=== PATIENT | male | born 1940 | race Caucasian/White ===

== ENCOUNTER → 2019-03-26 09:47 | Outpatient (CLI) | payer MEDICARE, SELFPAY ==
[2019-03-26 11:05] LABS: Alanine Aminotransferase 33 IU/L (21-72); Albumin 4.6 g/dL (3.5-5.0); Albumin Globulin Ratio 1.4 (1.0-2.8); Alkaline Phosphatase 81 U/L (38-126); Aspartate Aminotransferase 29 IU/L (17-59); Bilirubin Total 1.2 mg/dL (0.2-1.3); Blood Urea Nitrogen 14 mg/dL (9-20); Carbon Dioxide 27 mmol/L (22-32); Chloride 99 mmol/L (98-107); Cholesterol 203 mg/dL (140-199); Estimated Glomerular Filt Rate > 60.0 mL/min (>60); Globulin 3.2 g/dL (1.7-4.1); Glucose 122 mg/dL (80-110); HDL Cholesterol 49 mg/dL (40-60); HEMOLYSIS < 15 (0-50); LDL Cholesterol Calculated 118 mg/dL (<100); Potassium 4.3 mmol/L (3.4-5.1); Sodium 140 mmol/L (137-145); Total Protein 7.8 g/dL (6.3-8.2); Triglycerides 180 mg/dL (35-150)
[2019-03-26 11:10] LABS: Hemoglobin A1C% w Est Avg Glu 5.4 % (4.0-6.0)
[2019-03-26 11:49] LABS: Creatinine Urine Random 43.4 mg/dL
[2019-03-26 12:36] LABS: Microalbumi Creatinin Ratio Ur 41.4 ug/mg CR (<30); Microalbumin Urine Random 1.8 mg/dL (0-1.6)
== END ==
PROVIDERS: PCP Physician Assistant; Visit Provider Physician Assistant
DX: E78.5 Hyperlipidemia, unspecified (principal); I10 Essential (primary) hypertension; R73.01 Impaired fasting glucose
CPT/HCPCS: 36415; 80053; 80061; 82043; 82570; 83036

== ENCOUNTER → 2024-01-16 07:49 | Outpatient (CLI) | payer MEDICARE, SELFPAY ==
--- NOTE | 2024-01-16 07:53 | DI.ECHO.S_ITS ---
[facility] : : [address] : : [place] : : [id number] : : Phone: [phone] Echocardiogram Report + + :Name: MABEL TRIPLETT Study Date: 01/16/2024 Height: 72 in : :[facility] ReadingLocation: Weight: 220 lb : : Gender: Male BSA: 2.2 m2 : :: 1940 Age: 83 yrs BP: 175/104 mmHg: :Reason For Study: ATRIAL FIBRILLATION : :Ordering Physician: SALO, : :HUY Performed By: Avtar Cheung : :Referring: HUY LEONG : + + Interpretation Summary 1) Normal left ventricular thickness, size, wall motion, and systolic function (EF 55-60%). 2) Normal right ventricular size and function. 3) The left atrium is severely dilated 4) No significant valvular abnormalities. 5) Hypertension present during the study (BP 175/104mmHg). 6) No prior Echo available for comparison. Procedure: A two-dimensional transthoracic echocardiogram with color flow and Doppler was performed. The study quality was technically adequate. There is no prior echocardiogram noted for this patient. The patient was in atrial fibrillation with heart rates between 71-105 bpm during the exam. Left Ventricle: The left ventricle is normal in size and wall thickness. The ejection fraction is estimated to be 55-60%. Left ventricular systolic function appears normal without focal wall motion abnormalities. Diastolic parameters suggest a relaxation abnormality of the left ventricle, consistent with probable normal filling pressures. Right Ventricle: The right ventricle is mildly dilated. Right ventricular systolic function is borderline reduced. Atria: The left atrium is severely dilated. The right atrium is moderately dilated. The interatrial septum grossly appears intact with no obvious evidence for an atrial septal defect. Mitral Valve: The mitral valve is normal. There is no mitral valve stenosis. There is trace mitral regurgitation. Aortic Valve: The aortic valve is trileaflet. There is no aortic valve stenosis. No aortic regurgitation is present. Tricuspid Valve: There is no tricuspid stenosis. There is mild tricuspid regurgitation. Pulmonary artery pressures cannot be estimated because of the lack of a measurable TR jet velocity. Pulmonic Valve: The pulmonic valve is not well visualized. There is no pulmonic valvular stenosis. There is no pulmonic valvular regurgitation. Great Vessels: The aortic root is normal size. The ascending aorta is at the upper limits of normal in size. The inferior vena cava was not visualized. Pericardium/ Pleura There is no pericardial effusion. There is no pleural effusion. MMode/2D Measurements & Calculations LVIDd: 5.9 cm LVOT diam: 2.0 cm LVIDs: 4.2 cm Ao root diam: 3.3 cm FS: 28.4 % asc Aorta Diam: 3.9 cm IVSd: 0.98 cm Ao Arch Diam (Prox Trans): 3.0 cm LVPWd: 1.1 cm LV boudreaux. diameter/BSA (cm/m^2): 2.7 LV sys. diameter/BSA (cm/m^2): 1.9 LA A2 area: 34.4 cm2 RA long axis: 7.0 cm LA A4 area: 39.8 cm2 RA area: 32.4 cm2 LA length (vol): 7.7 cm RA vol: 127.4 ml LA vol: 151.0 ml RA : 57.4 ml/m2 LA vol index: 68.1 ml/m2 RVD1 (basal): 4.3 cm RVD2 (mid): 3.3 cm TAPSE: 1.9 cm Doppler Measurements & Calculations Ao V2 max: 152.4 cm/sec LVOT Max Que: 98.1 cm/sec Ao V2 mean: 107.7 cm/sec LV V1 max P.9 mmHg Ao max P.3 mmHg LV V1 VTI: 20.4 cm Ao mean P.1 mmHg DONALD(I,D): 2.1 cm2 Ao V2 VTI: 29.3 cm DONALD(V,D): 2.0 cm2 sev ratio: 0.70 DONALD indexed to BSA (cm^2/m^2): 0.95 MV E max que: 121.9 cm/sec TR max que: 318.5 cm/sec MV A max que: 24.6 cm/sec TR max P.6 mmHg MV E/A: 5.0 PA V2 max: 124.7 cm/sec Med Peak E' Que: 9.2 cm/sec PA V2 mean: 79.9 cm/sec E/E' med: 13.3 PA mean P.0 mmHg Lat Peak E' Que: 10.8 cm/sec PA pr(Accel): 52.7 mmHg E/E' lat: 11.3 E/e' average: 12.3 MV dec time: 0.18 sec SV(LVOT): 61.8 ml Reading Physician:11:[id number] AM
--- NOTE | 2024-01-16 07:53 | DI.NM.S_ITS ---
PROCEDURE: NM HUGO PERF SPECT R&S PHARM Rest and pharmacological stress myocardial perfusion SPECT with gated imaging and ejection fraction RADIOPHARMACEUTICAL: 25.0 mCi Tc-99m tetrafosmin IV at rest and 25.3 mCi Tc-99m tetrafosmin IV at peak effect of pharmacological stress. [id number] was performed. INDICATIONS: Atrial fibrillation TECHNIQUE: Radiopharmaceutical was injected at peak stress test, and also at rest. SPECT images were obtained. SPECT myocardial perfusion images were displayed in short axis, horizontal long axis, and vertical long axis views. Gated images were reviewed using Mulu software. COMPARISON: None. CARDIAC STRESS: A pharmacologic stress test was performed under the supervision of an attending staff, using an infusion of regadenoson 0.4 mg IV. Hemodynamic data: There is normal blood pressure and heart rate response to pharmacologic stress. Symptoms: The patient denied anginal chest pain. EKG: No diagnostic changes of ischemia; no ectopy. FINDINGS: Raw data: There is good myocardial uptake of radiotracer. No significant motion artifacts. [id number]-[id number] ratio is 0.42 (normal is less than 0.38 for tetrafosmin tracer). Left ventricle function: Gated images demonstrate normal left ventricular wall thickening. No segmental wall motion abnormalities. No transient ischemic dilation; TID is 1.0 (normal less than 1.3). Left ventricle resting end diastolic volume is 119 mL. Left ventricle stress ejection fraction is >75%; normal range is above 45%. Myocardial perfusion: There is normal distribution of activity in the right and left ventricular myocardium. No fixed or reversible perfusion defects. IMPRESSION: Low risk study. No evidence of pharmacologic induced ischemia or scar. Top normal calculated LVEDV with hyperdynamic function. Dictated by: Madison Cook D.O. on 01/18/2024 at 17:44 Approved by: Madison Cook D.O. on 01/18/2024 at 17:46
== END ==
LOC: ECHO 07:52
PROVIDERS: PCP Family Medicine; Referring Provider Family Medicine; Visit Provider Family Medicine
DX: I07.1 Rheumatic tricuspid insufficiency (principal); I48.91 Unspecified atrial fibrillation; I10 Essential (primary) hypertension
CPT/HCPCS: 78452; 93017; 93306; A9502; J2785

== ENCOUNTER → 2024-05-27 10:55 | Outpatient (CLI) | payer MEDICARE, SELFPAY ==
--- NOTE | 2024-05-27 10:56 | DI.US.S_ITS ---
PROCEDURE: US ARTERIAL DUPLEX LE BI INDICATIONS: PVD TECHNIQUE: Color and pulse Doppler interrogation was performed of both lower extremity arterial systems, with image documentation. COMPARISON: None. FINDINGS: Right lower extremity: Common femoral artery: 146 cm/sec, with triphasic flow. Deep femoral artery: 125 cm/sec, with triphasic flow. Proximal superficial femoral artery: 86 cm/sec, with triphasic flow. Mid superficial femoral artery: 100 cm/sec, with triphasic flow. Distal superficial femoral artery: 95 cm/sec, with triphasic flow. Popliteal artery: 83 cm/sec, with triphasic flow. Posterior tibial artery: 100 cm/sec, with triphasic flow. Anterior tibial artery/dorsalis pedis: 34 cm/sec, tri to biphasic flow. Mcdaniel-scale imaging description: Moderate degree of calcific plaque involving right common femoral artery Left lower extremity: Common femoral artery: 107 cm/sec, with triphasic flow. Deep femoral artery: 95 cm/sec, with triphasic flow. Proximal superficial femoral artery: 135 cm/sec, with triphasic flow. Mid superficial femoral artery: 93 cm/sec, with triphasic flow. Distal superficial femoral artery: 79 cm/sec, with triphasic flow. Popliteal artery: 68 cm/sec, with triphasic flow. Posterior tibial artery: 107 cm/sec, with triphasic flow. Anterior tibial artery/dorsalis pedis: 38 cm/sec, with tri to biphasic flow. Mcdaniel-scale imaging description: Moderate degree of calcific plaque involving right common femoral artery IMPRESSION: No significant stenosis involving bilateral lower extremity arterial systems. Dictated by: Zhao Beyer M.D. on 05/27/2024 at 16:52 Approved by: Zhao Beyer M.D. on 05/27/2024 at 16:56
== END ==
PROVIDERS: PCP Family Medicine; Referring Provider Internal Medicine Cardiovascular Disease; Visit Provider Internal Medicine Cardiovascular Disease
DX: I73.9 Peripheral vascular disease, unspecified (principal)
CPT/HCPCS: 93925